=== PATIENT | female | born 1965 | race Caucasian/White ===

== ENCOUNTER 2021-09-18 20:03 | Emergency (ER) | payer BC ==
[~2021-09-18] VITALS: Ht 175.3 cm; Wt 104.3 kg
[2021-09-18 20:03] VITALS: BP_SYST 138
[2021-09-18] MEDS ORDERED: DIPH-TET-PERTUS Vaccine 0.5 ML VIAL (ADACEL) I.M. ONE (21:30)
[2021-09-18] MEDS ORDERED: LIDOCAINE 1% 10 MG/ML, 20 ML MDV INJ ONE (21:30)
[2021-09-18] MEDS ORDERED: BACITRACIN 1 GM OINT TP ONE (22:42)
[2021-09-18 22:50] VITALS: BP_SYST 135
== END 2021-09-18 22:50 | disposition home or self-care (01) ==
LOC: SED 20:03
DX: S61.210A Laceration without foreign body of right index finger without damage to nail, initial encounter (principal); I10 Essential (primary) hypertension; W45.8XXA Other foreign body or object entering through skin, initial encounter; Y93.89 Activity, other specified; Y92.89 Other specified places as the place of occurrence of the external cause; Y99.8 Other external cause status
CPT/HCPCS: 12001; 90471; 90715; 99283; J2001

== ENCOUNTER 2021-09-26 08:22 | Emergency (ER) | payer BC ==
[~2021-09-26] VITALS: Ht 175.3 cm; Wt 104.3 kg
[2021-09-26 08:25] VITALS: BP_SYST 152
--- NOTE | 2021-09-26 08:25 | NUR ---
PT IN TRIAGE TENT FOR TRIAGE, WILL ASSUME CARE.
--- NOTE | 2021-09-26 08:30 | NUR ---
PT STATES STITCHES PLACED ON 09/19 AND HERE FOR REMOVAL. PT STATES 04/09 PAIN. PT STATES OF YESTERDAY, SHE IS COVID +.
--- NOTE | 2021-09-26 08:45 | NUR ---
DR WILLIAM OUT TO TENT FOR EVALUATION
--- NOTE | 2021-09-26 08:55 | NUR ---
RIGHT INDEX FINGER SOAKING IN BETADINE AND NS, LABS DRAWN BY WINDOW SASH INSTALLER
[2021-09-26 09:08] LABS: BASOPHILS % (AUTO) 1.3 % (0.0-2.0); EOSINOPHILS # (AUTO) 0.1 K/uL (0.0-0.4); EOSINOPHILS % (AUTO) 3.5 % (0.0-4.0); HEMATOCRIT 37.2 % (36-48); HEMOGLOBIN 12.7 g/dL (12.0-16.0); LYMPHOCYTES # (AUTO) 0.9 K/uL (1.0-5.5); LYMPHOCYTES % (AUTO) 28.6 % (20.5-51.5); MEAN CORPUSCULAR HEMOGLOBIN 31 pg (27-31); MEAN CORPUSCULAR HGB CONC 34 % (32-36); MEAN CORPUSCULAR VOLUME 91 fL (79.0-98.0); MONOCYTES # (AUTO) 0.4 K/uL (0.0-1.0); MONOCYTES % (AUTO) 14.2 % (1.7-9.3); NEUTROPHILS # (AUTO) 1.6 K/uL (1.8-7.7); NEUTROPHILS % (AUTO) 52.4 % (40.0-70.0); PLATELET COUNT (AUTO) 193 K/uL (130-430); RED BLOOD CELL COUNT(AUTO) 4.08 MIL/uL (4.2-6.2); RED CELL DISTRIBUTION WIDTH 13.2 % (9.0-15.0); WHITE BLOOD COUNT (AUTO) 3.1 K/uL (4.8-10.8)
--- NOTE | 2021-09-26 09:15 | NUR ---
DRESSING APPLIED TO RIGHT INDEX FINGER, PT TOLERATED IT WELL. NO CHANGES
[2021-09-26] MEDS ORDERED: CLIN-22 PO (09:23)
[2021-09-26 09:32] LABS: CALCIUM 8.2 mg/dL (8.4-11.0); CREATININE 0.9 mg/dL (0.55-1.30); POTASSIUM 4.3 mmol/L (3.5-5.1)
--- NOTE | 2021-09-26 09:34 | NUR ---
Patient given written and verbal discharge instructions and verbalizes understanding. ER MD discussed with patient the results and treatment provided. Patient in stable condition. ID arm band removed. Rx of CLINDAMYCIN given. Patient educated on pain management and to follow up with PMD. Pain Scale 0/10. Opportunity for questions provided and answered. Medication side effect fact sheet provided.
[2021-09-26 09:35] LABS: ALBUMIN 3.5 g/dL (3.4-4.8); TOTAL BILIRUBIN 0.4 mg/dL (0.0-1.0)
== END 2021-09-26 09:34 | disposition home or self-care (01) ==
LOC: SED 08:22
DX: S61.211D Laceration without foreign body of left index finger without damage to nail, subsequent encounter (principal); L08.9 Local infection of the skin and subcutaneous tissue, unspecified; I10 Essential (primary) hypertension; Z48.02 Encounter for removal of sutures; Z79.899 Other long term (current) drug therapy; X58.XXXD Exposure to other specified factors, subsequent encounter; Y93.89 Activity, other specified; Y92.89 Other specified places as the place of occurrence of the external cause; Y99.8 Other external cause status
CPT/HCPCS: 36415; 80053; 83605; 85025; 86140; 99283

== ENCOUNTER → 2021-09-30 | Emergency (ER) | payer BC ==
[~2021-09-30] MED LIST: CLIN-22 PO
== END | disposition home or self-care (01) ==
LOC: SED 09:59
DX: Z48.02 Encounter for removal of sutures (principal); I10 Essential (primary) hypertension; Z79.899 Other long term (current) drug therapy
CPT/HCPCS: 99281; 99282